=== PATIENT | female | born 1975 | race African-American/Black ===

== ENCOUNTER 2025-03-28 18:51 | Inpatient (IN) | payer MEDICAID ==
[~2025-03-28] VITALS: Ht 157.5 cm; Wt 65.4 kg
[2025-03-28] MEDS ORDERED: VANCOMYCIN 1G PREMIX 200 ML IV ONE (19:15)
[2025-03-28] MEDS: SODIUM CHLORIDE 0.9% (SEPSIS BOLUS) IV ONE (19:28)
[2025-03-28] MEDS: PIPERACILLIN/TAZO 3.375G/50ML 50 ML IV ONE (21:08)
[2025-03-28 21:11] LABS: EOSINOPHILS % 5.8 % (0.0-5.0); HEMATOCRIT. 24.5 % (36.0-48.0); HEMOGLOBIN. 7.8 g/dL (12.0-16.0); MEAN CORPUSCULAR HEMOGLOBIN 27.6 pg (28.0-32.0); MEAN CORPUSCULAR HGB CONC 31.7 g/dL (31.0-37.0); MEAN CORPUSCULAR VOLUME 87.1 fL (81.0-99.0); MEAN PLATELET VOLUME 12.1 fl (7.4-10.4); NEUTROPHILS % 63.2 % (40.0-76.0); PLATELET 138 x1000/uL (130-400); RED BLOOD CELL COUNT 2.81 mill/uL (4.2-5.4); RED CELL DISTRIBUTION WIDTH 16.4 % (11.6-14.6); WHITE BLOOD COUNT 7.7 x1000/uL (4.5-11.0)
[2025-03-28 21:18] LABS: CHLORIDE 115 mEq/L (98-107); SODIUM 148 mEq/L (136-145)
[2025-03-28 21:19] LABS: CARBON DIOXIDE 20 mEq/L (21-32)
[2025-03-28 21:20] LABS: CALCIUM 6.8 mg/dL (8.7-10.4); INR 1.1; PROTHROMBIN TIME 11.4 sec (9.6-11.0)
[2025-03-28 21:25] LABS: CREATININE 0.4 mg/dL (0.6-1.0); GLUCOSE 74 mg/dL (70-105); UREA NITROGEN BLOOD 19 mg/dL (9-23)
[2025-03-28 21:26] LABS: ALANINE AMINOTRANSFERASE 20 IU/L (10-49); ALBUMIN 2.8 g/dL (3.2-4.8); ASPARTATE AMINOTRANSFERASE 14 IU/L (<34); HCG SCREEN NEGATIVE
[2025-03-28 21:27] LABS: BILIRUBIN DIRECT < 0.1 mg/dL (<=3.0); BILIRUBIN TOTAL 0.2 mg/dL (0.1-1.0); PROTEIN TOTAL 5.8 g/dL (6.0-8.3)
[2025-03-28] MEDS ORDERED: ACETAMINOPHEN 1000MG/100ML 100 ML IV ONE (21:30)
[2025-03-28 21:33] LABS: TROPONIN I HIGH SENSITIVITY < 4 ng/L (3.0-34)
[2025-03-28 21:35] LABS: LACTIC ACID 3.8 mmol/L (0.4-2.0); POTASSIUM 2.4 mEq/L (3.5-5.1)
[2025-03-28] MEDS ORDERED: MAGNESIUM 2 G PREMIX 50 ML IV ONE (21:45)
[2025-03-28] MEDS ORDERED: KCL 20MEQ/100ML PREMIX 100 ML IV SCH (21:45)
[2025-03-28] MEDS: POTASSIUM CHLORIDE 20MEQ/PACKET PEG ONE (22:11)
[2025-03-28] MEDS: ACETAMINOPHEN 650MG/20.3ML UDC PEG ONE (22:18)
[2025-03-29] VITALS (12 sets, daily range): BP systolic 96–146; BP diastolic 64–108; PULSE 100–113; RESP 16–25; TEMP 36.9–37.2; O2SAT 70–100
[2025-03-29] MEDS ORDERED: VANCOMYCIN 1G PREMIX 200 ML IV SCH (02:30)
[2025-03-29] MEDS ORDERED: ONDANSETRON HCL 4MG/2ML INJ IV PRN (02:30)
[2025-03-29] MEDS ORDERED: ACETAMINOPHEN 650MG/20.3ML UDC GT PRN (02:30)
[2025-03-29] MEDS ORDERED: CLONIDINE 0.1MG TABLET PEG PRN (02:30)
[2025-03-29] MEDS ORDERED: IPRATROPIUM/ALBUTEROL 0.5-3(2.5)MG/3ML NEB HHN PRN (02:30)
[2025-03-29] MEDS: VANCOMYCIN 1.25GM/250ML IV NR (03:28)
[2025-03-29] MEDS: POTASSIUM CHLORIDE 20MEQ/PACKET PEG NR (04:29)
[2025-03-29] MEDS: DEXT 5%/0.45% NACL KCL 40MEQ/L 1,000 ML IV SCH (04:29)
[2025-03-29] MEDS: SODIUM CHLORIDE 0.9% 3ML FLUSH IVF SCH (06:48)
[2025-03-29] MEDS: PIPERACILLIN/TAZO 3.375G/50ML 50 ML IV SCH (06:51)
[2025-03-29] MEDS ORDERED: LIDOCAINE HCL 1% 10 MG/ML 10ML VIAL ONE (08:45)
[2025-03-29] MEDS ORDERED: VANCOMYCIN 1GM/200ML PMX (BAXTER) IV SCH (12:00)
[2025-03-29] MEDS ORDERED: DIATR MEGLU/DIATRIZOATE SOLN 30ML ONE (14:20)
[2025-03-29] MEDS: PANTOPRAZOLE SODIUM 40 MG/VIAL IV SCH (17:46)
[2025-03-29] MEDS: GABAPENTIN 100MG CAPSULE PEG SCH (18:08)
[2025-03-29] MEDS: ENOXAPARIN 40MG/0.4ML SYR SUBCUT SCH (18:08)
[2025-03-29] MEDS: ACETAMINOPHEN 650MG/20.3ML UDC GT PRN (18:08)
[2025-03-29] MEDS: POLYETHYLENE GLYCOL 3350 (17GM) 1 DOSE PACK PEG SCH (18:08)
[2025-03-29] MEDS: FAMOTIDINE 20MG TABLET PEG SCH (18:09)
[2025-03-29] MEDS: FOLIC ACID 1MG TABLET PEG SCH (18:09)
[2025-03-29] MEDS: CHOLECALCIFEROL (D3) 1000 UNIT TABLET PEG SCH (18:09)
[2025-03-29] MEDS: ASCORBIC ACID 500 MG TABLET PEG SCH (18:09)
[2025-03-29] MEDS: ZINC SULFATE 220 MG ( 50 ) CAPSULE PEG SCH (18:09)
[2025-03-29] MEDS: AMLODIPINE 5MG TABLET PEG SCH (18:10)
[2025-03-29] MEDS: DOCUSATE SODIUM 100MG CAPSULE PEG SCH (18:10)
[2025-03-29] MEDS: METOPROLOL TARTRATE 25MG TABLET PEG SCH (18:12)
[2025-03-29] MEDS ORDERED: FAMOTIDINE 20MG TABLET PEG SCH (21:00)
[2025-03-29] MEDS: VANCOMYCIN 750MG PMX (XELLIA) 150 ML IV SCH (21:06)
[2025-03-29] MEDS: ATORVASTATIN CALCIUM 20MG TABLET PEG SCH (21:06)
[2025-03-30] VITALS (12 sets, daily range): BP systolic 99–118; BP diastolic 61–98; PULSE 99–117; RESP 13–24; TEMP 36.6–36.9; O2SAT 94–100
[2025-03-30 06:10] LABS: CHLORIDE 110 mEq/L (98-107); POTASSIUM 3.8 mEq/L (3.5-5.1); SODIUM 146 mEq/L (136-145)
[2025-03-30 06:11] LABS: CALCIUM 9.6 mg/dL (8.7-10.4); CARBON DIOXIDE 21 mEq/L (21-32)
[2025-03-30 06:16] LABS: CREATININE 0.7 mg/dL (0.6-1.0); GLUCOSE 156 mg/dL (70-105); IRON 31 ug/dL (50-170)
[2025-03-30 06:17] LABS: UREA NITROGEN BLOOD 20 mg/dL (9-23)
[2025-03-30 06:18] LABS: ALANINE AMINOTRANSFERASE 23 IU/L (10-49); ALBUMIN 3.9 g/dL (3.2-4.8); ASPARTATE AMINOTRANSFERASE 21 IU/L (<34); BILIRUBIN DIRECT < 0.1 mg/dL (<=3.0); BILIRUBIN TOTAL 0.4 mg/dL (0.1-1.0); PHOSPHORUS 3.3 mg/dL (2.5-4.9); PREALBUMIN 32.3 mg/dl (10.0-40.0)
[2025-03-30 06:19] LABS: PROTEIN TOTAL 7.9 g/dL (6.0-8.3); TOTAL IRON BINDING CAPACITY 316 ug/dl (250-425)
[2025-03-30 06:20] LABS: BASOPHILS % 0.9 % (0.0-2.0); EOSINOPHILS % 6.5 % (0.0-5.0); HEMATOCRIT. 32.4 % (36.0-48.0); LYMPHOCYTES % 16.1 % (20.0-50.0); MEAN CORPUSCULAR HEMOGLOBIN 27.3 pg (28.0-32.0); MEAN CORPUSCULAR HGB CONC 30.8 g/dL (31.0-37.0); MEAN CORPUSCULAR VOLUME 88.6 fL (81.0-99.0); MONOCYTES % 5.9 % (2.0-8.0); NEUTROPHILS % 70.6 % (40.0-76.0); PLATELET 164 x1000/uL (130-400); RED BLOOD CELL COUNT 3.65 mill/uL (4.2-5.4); RED CELL DISTRIBUTION WIDTH 16.8 % (11.6-14.6); WHITE BLOOD COUNT 7.6 x1000/uL (4.5-11.0)
[2025-03-30 11:10] LABS: FOLIC ACID (FOLATE) SERUM > 20.00 ng/mL (>5.38); VITAMIN B12 SERUM 1139 pg/mL (211-911)
[2025-03-30 11:11] LABS: FERRITIN 299 ng/mL (10-291)
[2025-03-30] MEDS ORDERED: DEXTROSE 50% WATER 50ML SYRINGE IV PRN (12:15)
[2025-03-30] MEDS: INSULIN LISPRO 100 UNITS/ML SUBCUT SCH (13:00)
[2025-03-30] MEDS: BLOOD SUGAR DIAGNOSTIC STRIP TEST SCH (13:17)
[2025-03-30] MEDS: FERROUS SULFATE 300MG/5ML UDC GT SCH (14:34)
[2025-03-31] VITALS (12 sets, daily range): BP systolic 81–116; BP diastolic 64–81; PULSE 92–109; RESP 15–24; TEMP 36.2–36.8; O2SAT 96–100
[2025-03-31 08:15] LABS: BASOPHILS % 0.8 % (0.0-2.0); EOSINOPHILS % 5.3 % (0.0-5.0); HEMATOCRIT. 36.1 % (36.0-48.0); HEMOGLOBIN. 11.1 g/dL (12.0-16.0); LYMPHOCYTES % 19.2 % (20.0-50.0); MEAN CORPUSCULAR HEMOGLOBIN 27.1 pg (28.0-32.0); MEAN CORPUSCULAR HGB CONC 30.8 g/dL (31.0-37.0); MEAN CORPUSCULAR VOLUME 88.1 fL (81.0-99.0); MONOCYTES % 6.2 % (2.0-8.0); NEUTROPHILS % 68.5 % (40.0-76.0); RED CELL DISTRIBUTION WIDTH 16.9 % (11.6-14.6); WHITE BLOOD COUNT 6.2 x1000/uL (4.5-11.0)
[2025-03-31 08:17] LABS: CHLORIDE 113 mEq/L (98-107); POTASSIUM 4.2 mEq/L (3.5-5.1); SODIUM 143 mEq/L (136-145)
[2025-03-31 08:18] LABS: CALCIUM 9.3 mg/dL (8.7-10.4); CARBON DIOXIDE 20 mEq/L (21-32)
[2025-03-31 08:23] LABS: CREATININE 0.6 mg/dL (0.6-1.0); GLUCOSE 151 mg/dL (70-105); UREA NITROGEN BLOOD 13 mg/dL (9-23)
[2025-03-31 08:56] LABS: DIFFERENTIAL COMMENT 1
[2025-03-31 09:32] LABS: PLATELET 160 x1000/uL (130-400)
[2025-03-31] MEDS: METOPROLOL TARTRATE 25MG TABLET PEG SCH (18:19)
[2025-03-31 23:47] LABS: LACTIC ACID 2.7 mmol/L (0.4-2.0)
[2025-04-01] VITALS (12 sets, daily range): BP systolic 88–129; BP diastolic 61–78; PULSE 73–117; RESP 18–22; TEMP 36.6–37.6; O2SAT 97–100
[2025-04-01] MEDS: SODIUM CHLORIDE 0.9% 1,000 ML IV SCH (13:44)
[2025-04-01] MEDS: DOCUSATE SODIUM SUGAR FREE 100MG/10ML UDC PEG SCH (20:28)
== END 2025-04-01 22:38 | DRG 720 ==
LOC: ER 18:51 → EDBEDREQ 19:14 → 5EST 21:45 → EDBEDREQSVC 21:52 → EDBEDREQTM 21:52 → EDBEDREQ 21:52
PROVIDERS: ADMIT Internal Medicine; ATTEND Internal Medicine
PROC: 05H533Z Insertion of Infusion Device into Right Subclavian Vein, Percutaneous Approach (ICD-10-PCS; principal; 2025-03-29)
PROC: B546ZZA Ultrasonography of Right Subclavian Vein, Guidance (ICD-10-PCS; 2025-03-29)
PROC: 0D20XUZ Change Feeding Device in Upper Intestinal Tract, External Approach (ICD-10-PCS; 2025-03-29)
DX: A41.9 Sepsis, unspecified organism (principal); J96.21 Acute and chronic respiratory failure with hypoxia; R65.21 Severe sepsis with septic shock; L89.153 Pressure ulcer of sacral region, stage 3; G82.20 Paraplegia, unspecified; D63.8 Anemia in other chronic diseases classified elsewhere; E88.09 Other disorders of plasma-protein metabolism, not elsewhere classified; K94.23 Gastrostomy malfunction; E11.9 Type 2 diabetes mellitus without complications; E87.6 Hypokalemia; E78.00 Pure hypercholesterolemia, unspecified; I10 Essential (primary) hypertension; K21.9 Gastro-esophageal reflux disease without esophagitis; E61.1 Iron deficiency; F09 Unspecified mental disorder due to known physiological condition; G35 Multiple sclerosis; R13.10 Dysphagia, unspecified; Z87.440 Personal history of urinary (tract) infections; Z99.81 Dependence on supplemental oxygen; Y83.8 Other surgical procedures as the cause of abnormal reaction of the patient, or of later complication, without mention of misadventure at the time of the procedure; Y82.8 Other medical devices associated with adverse incidents; Y92.89 Other specified places as the place of occurrence of the external cause
CPT/HCPCS: 36415; 36573; 71045; 74018; 74176; 80048; 80053; 80076; 80202; 82270; 82607; 82728; 82746; 82962; 83036; 83540; 83550; 83605; 83735; 83880; 84100; 84134; 84145; 84484; 84703; 85025; 85044; 85379; 87070; 93005; 99291; A4606; C1725; J1650; J2003; J2470; J2543; J3370; J7030; Q9963; J0131